=== PATIENT | female | born 1965 | race Asian ===

== ENCOUNTER 2016-07-15 11:59 | Outpatient (CLI) | payer OTHER ==
[~2016-07-15 11:59] MED LIST: ALPR0.2566 PO; EXEMESTANE25 MG PO; HYDR25TA60 PO; LEVO0.0218 PO; SIMV20TA2 PO
== END 2016-07-15 19:09 | disposition home or self-care (01) ==
LOC: RAD 11:59
DX: M25.562 Pain in left knee (principal)

== ENCOUNTER 2016-08-31 18:33 | Emergency (ER) | payer OTHER ==
[~2016-08-31] VITALS: Ht 162.6 cm; Wt 78.5 kg
[2016-08-31 19:00] VITALS: BP 123/83; TEMP 98.7
== END 2016-08-31 23:21 | disposition home or self-care (01) ==
LOC: ED 18:33
DX: M25.552 Pain in left hip (principal)
CPT/HCPCS: 99281

== ENCOUNTER 2017-01-18 13:46 | Outpatient (CLI) | payer OTHER | END 2017-01-18 15:00 | disposition home or self-care (01) | LOC: MAMMO 13:46 | DX: Z85.3 Personal history of malignant neoplasm of breast (principal) ==

== ENCOUNTER 2017-04-01 14:17 | Outpatient (CLI) | payer OTHER | END 2017-04-01 21:54 | disposition home or self-care (01) | LOC: US 14:17 | DX: N64.59 Other signs and symptoms in breast (principal) ==

== ENCOUNTER 2017-04-12 09:10 | Emergency (ER) | payer OTHER ==
[~2017-04-12] VITALS: Ht 162.6 cm; Wt 79.8 kg
[2017-04-12 10:24] VITALS: BP 130/70; TEMP 98.9
== END 2017-04-12 10:25 | disposition home or self-care (01) ==
LOC: ED 09:10
DX: S99.822A Other specified injuries of left foot, initial encounter (principal); W22.8XXA Striking against or struck by other objects, initial encounter
CPT/HCPCS: 96372; 99283; J1885

== ENCOUNTER 2018-01-05 17:06 | Emergency (ER) | payer OTHER ==
[~2018-01-05] VITALS: Ht 162.6 cm; Wt 74.4 kg
[2018-01-05 18:07] LABS: PLATELET COUNT 238 K/uL (152-353)
[2018-01-05 18:17] LABS: POTASSIUM 3.2 mmol/L (3.6-5.2); SODIUM 143 mmol/L (136-145)
[2018-01-05 19:59] VITALS: BP 117/71; TEMP 97.7
== END 2018-01-05 20:00 | disposition home or self-care (01) ==
LOC: ED 17:06
DX: M25.511 Pain in right shoulder (principal)
CPT/HCPCS: 36415; 80053; 81000; 82550; 82553; 84484; 85027; 93005; 99283

== ENCOUNTER 2019-02-17 03:37 | Emergency (ER) | payer OTHER ==
[~2019-02-17] VITALS: Ht 162.6 cm; Wt 77.6 kg
[2019-02-17 03:42] VITALS: BP 119/75; TEMP 97.7
== END 2019-02-17 06:32 | disposition home or self-care (01) ==
LOC: ED 03:37
DX: S62.637A Displaced fracture of distal phalanx of left little finger, initial encounter for closed fracture (principal); S80.02XA Contusion of left knee, initial encounter; S80.01XA Contusion of right knee, initial encounter; S13.4XXA Sprain of ligaments of cervical spine, initial encounter; M79.641 Pain in right hand; Y04.2XXA Assault by strike against or bumped into by another person, initial encounter; Y92.89 Other specified places as the place of occurrence of the external cause
CPT/HCPCS: 99283

== ENCOUNTER 2019-09-24 08:58 | Emergency (ER) | payer OTHER ==
[~2019-09-24] VITALS: Ht 162.6 cm; Wt 73.5 kg
[2019-09-24 09:07] VITALS: BP 142/88; TEMP 98.7
== END 2019-09-24 11:17 | disposition home or self-care (01) ==
LOC: ED 08:58
DX: M18.9 Osteoarthritis of first carpometacarpal joint, unspecified (principal)
CPT/HCPCS: 96372; 99283; J1885

== ENCOUNTER 2020-04-10 10:41 | Emergency (ER) | payer OTHER ==
[~2020-04-10] VITALS: Ht 162.6 cm; Wt 73.5 kg
[2020-04-10 10:54] VITALS: TEMP 97.9
[2020-04-10 11:25] LABS: POTASSIUM 3.6 mmol/L (3.6-5.2)
[2020-04-10 11:26] LABS: PLATELET COUNT 229 K/uL (152-353)
[2020-04-10 12:45] VITALS: BP 126/88
== END 2020-04-10 12:45 | disposition home or self-care (01) ==
LOC: ED 10:41
PROVIDERS: Hospitalist
DX: U07.1 COVID-19 (principal); J06.9 Acute upper respiratory infection, unspecified; R19.7 Diarrhea, unspecified
CPT/HCPCS: 80053; 85027; 87502; 87635; 87651; 96372; 99283; J1100; U0003